=== PATIENT | female | born 1975 | race Caucasian/White ===

== ENCOUNTER 2018-08-18 09:01 | Emergency (ER) | payer OTHER | END 2018-08-18 11:18 | disposition home or self-care (01) | LOC: FTE 09:01 | DX: S99.922A Unspecified injury of left foot, initial encounter (principal); X58.XXXA Exposure to other specified factors, initial encounter; Y92.9 Unspecified place or not applicable | CPT/HCPCS: 73630; 73630-LT; 99283-25 ==

== ENCOUNTER 2018-11-14 08:50 | Emergency (ER) | payer OTHER ==
[2018-11-14] MEDS ORDERED: KETOROLAC 30 MG INJ IV (11:03)
[2018-11-14] MEDS: KETOROLAC 60 MG INJ IM (11:27)
== END 2018-11-14 12:56 | disposition home or self-care (01) ==
LOC: FTE 08:50
DX: J02.9 Acute pharyngitis, unspecified (principal); I10 Essential (primary) hypertension
CPT/HCPCS: 81025; 87880; 96372; 99284-25

== ENCOUNTER 2019-01-20 05:24 | Emergency (ER) | payer OTHER ==
[2019-01-20] MEDS: morphine 4 MG/ML VIAL IV (06:02)
[2019-01-20] MEDS: ONDANSETRON 4 MG INJ IV (06:02)
[2019-01-20 06:14] LABS: ADD MAN DIFF? NO
[2019-01-20 06:28] LABS: WHITE BLOOD COUNT 7.5 10^3/ul (4.8-10.8)
[2019-01-20 06:28] LABS: BASOPHILS % 0.4 % (0.0-2.0); EOSINOPHILS % 0.1 % (0.0-7.0); HEMATOCRIT 37.3 % (37.0-47.0); HEMOGLOBIN 12.5 g/dl (12.0-16.0); LYMPHOCYTES # 3.3 10^3/ul (0.8-2.9); LYMPHOCYTES % 43.6 % (15.0-51.0); MEAN CORPUSCULAR HEMOGLOBIN 29.7 pg (29.0-33.0); MEAN CORPUSCULAR HGB CONC 33.5 g/dl (32.0-37.0); MEAN CORPUSCULAR VOLUME 88.6 fl (82.0-101.0); MEAN PLATELET VOLUME 8.6 fl (7.4-10.4); MONOCYTE # 0.5 10^3/ul (0.3-0.9); MONOCYTES % 6.8 % (0.0-11.0); NEUTROPHIL # 3.6 10^3/ul (1.6-7.5); NEUTROPHILS % 48.6 % (39.0-77.0); PLATELET COUNT 347 10^3/UL (140-415); RED BLOOD COUNT 4.21 10^6/ul (4.20-5.40)
[2019-01-20 06:39] LABS: ALANINE AMINOTRANSFERASE 26 IU/L (13-69); ALBUMIN 4.3 g/dl (3.3-4.9); ALBUMIN/GLOBULIN RATIO 1.34; ALKALINE PHOSPHATASE 68 IU/L (42-121); ANION GAP 9 (5-13); ASPARTATE AMINO TRANSFERASE 27 IU/L (15-46); BILIRUBIN,INDIRECT 0.7 mg/dl (0-1.1); BILIRUBIN,TOTAL 0.7 mg/dl (0.2-1.3); BLOOD UREA NITROGEN 7 mg/dl (7-20); CALCIUM 9.1 mg/dl (8.4-10.2); CARBON DIOXIDE 22 mmol/L (21-31); CHLORIDE 111 mmol/L (97-110); CREATININE 0.71 mg/dl (0.44-1.00); Estimated GFR > 60 mL/min (>60); GLUCOSE 102 mg/dl (70-220); POTASSIUM 4.1 mmol/L (3.5-5.1); SODIUM 142 mmol/L (135-144); TOTAL PROTEIN 7.5 g/dl (6.1-8.1)
[2019-01-20 06:48] LABS: B-TYPE NATRIURETIC PEPTIDE 143 PG/ML (0-125)
[2019-01-20 06:52] LABS: TROPONIN-I < 0.012 ng/ml (0.000-0.120)
== END 2019-01-20 09:09 | disposition home or self-care (01) ==
LOC: E/R 05:24
DX: F41.9 Anxiety disorder, unspecified (principal); R00.2 Palpitations; R40.2142 Coma scale, eyes open, spontaneous, at arrival to emergency department; R40.2252 Coma scale, best verbal response, oriented, at arrival to emergency department; R40.2362 Coma scale, best motor response, obeys commands, at arrival to emergency department
CPT/HCPCS: 36415; 71045; 80053; 83880; 84484; 85025; 93005; 96374; 96375; 99285-25